=== PATIENT | male | born 1935 | race Caucasian/White ===

== ENCOUNTER 2019-02-10 13:12 | Inpatient (IN) ==
[2019-02-10] MEDS ORDERED: Naloxone 0.4 MG/ML INJ IVP PRN (16:25)
[2019-02-10] MEDS ORDERED: Ondansetron 4 MG/2 ML VIAL IVP PRN (16:26)
--- NOTE | 2019-02-10 17:00 | Internal Med History&Physical ---
Date of Encounter: 02/10/19 Time of Encounter: 16:00 Internal Medicine - H&P: HPI Chief complaint: Left hip fracture History of present illness: Mr. Zacarias is a 83 year old male with pmh of atrial fibrillation, CAD, diabetes, dyslipidemia presenting with complaints of being unable to walk today s/p fall. Patient reports having falling down on wednesday and has been having pain and difficulty ambulating since then. he subsequenty fell agin 2 more times, the most recent being at 3am today. He has been in severe pain and been unable to ambulate since then and that's why he came to the ER. He denies any other acute complaints such as chest pain, nausea or vomiting. In the ER at [facility] he had, a hip xray done showing a left hip fracture and he was transferred here for an orthopedic surgery assessment. He is being admitted for further management Past Med Surg Social Fam HX - Past Medical History Medical history: atrial fibrillation, hyperlipidemia, hypertension Additional medical history: A-fib, HTN, HLD, cardiac stents X2 - Past Surgical History Surgical History: cholecystectomy - Social History Smoking Status: Current some day smoker Packs per day: 3-4 cigs/day Smokeless Tobacco Status: No Alcohol use: rarely Drug use: none - Family History Father Hx Family Endocrine Disorder: Yes (Diabetes) Internal Medicine - H&P: Meds Clopidogrel [Plavix] 75 mg PO DAILY 02/10/19 [History] Furosemide [Lasix] 40 mg PO BID 02/10/19 [History] Glimepiride [Amaryl] 2 mg PO 0800 02/10/19 [History] Metformin HCl [Metformin HCl ER] 500 mg PO QPM 02/10/19 [History] Metoprolol Succinate 50 mg PO BID 02/10/19 [History] Rosuvastatin [Crestor] 40 mg PO DAILY 02/10/19 [History] Sulfamethoxazole/Trimeth DS [Bactrim Ds] 1 tab PO BID 02/10/19 [History] Allergy/AdvReac Type Severity Reaction Status Date / Time Iodinated Contrast Media Allergy Severe Rash Verified 02/10/19 16:28 All Systems PM: A 10-system review of systems was performed and is negative for pertinent findings except as documented above in the HPI. - Constitutional Constitutional: no chills, no fever(s), no night sweats - EENT Eyes: no change in vision, no discharge, no pain, no photophobia Ears: no ear discharge, no ear pain, no tinnitus Nose, mouth and throat: no dysphagia, no nasal discharge, no neck pain, no sore throat - Cardiovascular Cardiovascular ROS IM: no chest pain, no diaphoresis, no dyspnea, no lightheadedness, no palpitations, no syncope - Respiratory Respiratory: no cough, no dyspnea, no wheezing, no excessive phlegm production - Gastrointestinal Gastrointestinal: no abdominal pain, no diarrhea, no hematemesis, no hematochezia, no melena, no nausea, no vomiting - Musculoskeletal Musculoskeletal ROS IM: limited range of motion, no numbness, no tingling Additional comments: hip pain - Integumentary Integumentary IM: no rash, no unusual bruising - Neurological Neurological ROS: no confusion, no convulsions, no focal weakness, no numbness, no tingling, no tremor(s) - Hematologic/Lymphatic Hematologic/Lymphatic: no easy bruising - Constitutional Vitals: Temp Pulse Resp BP Pulse Ox 97.4 F L 71 16 116/73 96 02/10/19 16:04 02/10/19 16:04 02/10/19 16:04 02/10/19 16:04 02/10/19 16:04 Exam: Mild distress fr pain Left lower extremity appears shortened and externally rotated - Head Head exam: Present: atraumatic, normocephalic - Eye Eye exam: Present: PERRL, conjuntiva pink, sclera anicteric Pupils: Present: PERRL - Neck Neck exam general surgery: Present: supple, trachea midline. Absent: lymphadenopathy - Respiratory Respiratory exam: Present: CTAB. Absent: accessory muscle use, rales, rhonchi, wheezes - Cardiovascular Cardiovascular exam: Present: RRR, +S1, +S2. Absent: diastolic murmur, gallop, rubs, systolic murmur - GI/Abdominal GI/Abdominal exam: Present: normal bowel sounds, soft, no peritoneal signs. Absent: distended, tenderness - Extremities Exam Extremities exam: Present: warm, radial pulses palpable and symmetrical. Absent: calf tenderness, cyanotic, pedal edema - Neurological Exam Neurological exam: Present: CN II-XII intact, oriented X3, no focal deficits. Absent: pronater drift, facial droop, speech deficit - Skin Skin exam: Present: dry, intact - Assessment and Plan (1) Hip fracture Current Visit: Yes Status: Acute Assessment and plan: Pt comes in with hip pain s/p fall. Xray shows acute hip fracture Ortho cosulted and plan for surgery in am Qualifiers: Qualified Code(s): S72.009A - Fracture of unspecified part of neck of unspecified femur, initial encounter for closed fracture (2) Diabetes Current Visit: Yes Status: Acute Assessment and plan: On sliding scale insulin. Monitor fingersticks Qualifiers: Qualified Code(s): E11.9 - Type 2 diabetes mellitus without complications (3) Atrial fibrillation Current Visit: Yes Status: Acute Assessment and plan: Continue beta blockers. Does not appear to be on anticoagulation Rate controlled Qualifiers: Qualified Code(s): I48.91 - Unspecified atrial fibrillation (4) CAD (coronary artery disease) Current Visit: Yes Status: Acute Assessment and plan: Continue plavix and statin Qualifiers: Qualified Code(s): I25.10 - Atherosclerotic heart disease of [place] coronary artery without angina pectoris (5) Dyslipidemia Current Visit: Yes Status: Acute Assessment and plan: Continue statin (6) Chronic kidney disease Current Visit: Yes Status: Acute Assessment and plan: CKD stage 3. Monitor creatinine. No acute worsening Qualifiers: Chronic kidney disease stage: stage 3 (moderate) Qualified Code(s): N18.3 - Chronic kidney disease, stage 3 (moderate) (7) DVT prophylaxis Current Visit: Yes Status: Acute Assessment and plan: heparin sc - Time Spent With Patient Total time spent is greater than 50% in coordination of care (as documented) at patient's floor/unit and/or counseling patient:
[2019-02-10] MEDS ORDERED: Dextrose Gel 15 GM/37.5 ML TUBE PO PRN ×2 (17:02)
[2019-02-10] MEDS ORDERED: D5% in Water 1,000 ML IVC PRN (17:02)
[2019-02-10] MEDS ORDERED: *HR* Dextrose 50 % in Water (Syg) 50 ML SYRINGE IVP PRN (17:02)
[2019-02-10] MEDS: *HR* Heparin 5,000 UNIT/ML VIAL SQ SCH (18:07)
[2019-02-10] MEDS: Metoprolol XL (24 HR) Succ 50 MG TAB.ER.24H PO SCH (21:09)
[2019-02-11] MEDS: *HR* Heparin 5,000 UNIT/ML VIAL SQ SCH ×2 (06:04→17:21)
--- NOTE | 2019-02-11 07:01 | Anesthesia Evaluation PreOp ---
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: Denies Any Significant HX Other Medical History: Denies Any Significant HX, Diabetes Type II Anesthesia History: No Prior Anesthetic Complications, Past Anesthesia (ramón) Alcohol Use: rarely Drug use: none Medications and Allergies Albuterol Sulfate [Proair Hfa] 1 puff IH Q6H PRN 02/10/19 [History] Aspirin [Lo-Dose Aspirin EC] 1 tab PO DAILY 02/10/19 [History] Clopidogrel [Plavix] 75 mg PO DAILY 02/10/19 [History] Furosemide [Lasix] 40 mg PO BID 02/10/19 [History] Glimepiride [Amaryl] 2 mg PO 0800 02/10/19 [History] Metformin HCl [Metformin HCl ER] 500 mg PO QPM 02/10/19 [History] Metoprolol Succinate 50 mg PO BID 02/10/19 [History] Ranolazine [Ranexa] 500 mg PO BID 02/10/19 [History] Rosuvastatin [Crestor] 40 mg PO DAILY 02/10/19 [History] Sulfamethoxazole/Trimeth DS [Bactrim Ds] 1 tab PO BID 02/10/19 [History] Allergy/AdvReac Type Severity Reaction Status Date / Time Iodinated Contrast Media Allergy Severe Rash Verified 02/10/19 16:28 - Meds/Allergy Pre-op Review Medications Reviewed: Yes Allergies Reviewed: Yes Beta Blockers on Current Med List: Yes Anesthesia Results - Labs Laboratory Tests 01/30/19 02/07/19 12:42 09:21 Sodium 136 Potassium 4.0 Chloride 101 Carbon Dioxide 24 BUN 30 H Creatinine 2.13 H Hemoglobin A1c 7.1 H Hb 12.4 Anesthesia Exam Vital Signs/O2 Sat/Glucose, Most Recent Temp Pulse Resp BP Pulse Ox 98.0 F 74 18 110/67 96 02/11/19 06:25 02/11/19 06:25 02/11/19 06:25 02/11/19 06:25 02/11/19 06:25 Blood Glucose* 149 - HEENT Pupil (Motor): Pupils equal, EOMI Mallampati: II Oral Opening: Greater than 3 - FINAL ARMATURE TESTER LOC: Oriented FINAL ARMATURE TESTER Motor: Normal RUE, Normal LUE, Normal RLE, Normal LLE, Normal Face FINAL ARMATURE TESTER Sensory: Normal: RUE, LUE, RLE, LLE, Face - Cardiac Rhythm: Regular Murmur: None JVD: No - Pulmonary Breath Sounds: bilateral Clear Respiratory Effort: Symmetrical Anesthesia Assess/Plan ASA Score: 4 Level of consciousness: Cooperative, Oriented, Asleep with no response Reason for No Neuroaxial/Regional Block: Medication contraindications Monitoring Plan: Standard Monitors Recovery Plan: PACU
[2019-02-11] MEDS ORDERED: *HR* Rocuronium Bromide 50 MG/5 ML VIAL ONE (07:06)
[2019-02-11] MEDS ORDERED: Lidocaine -MPF 2% 2 ML VIAL ONE (07:06)
[2019-02-11] MEDS ORDERED: Lidocaine HCL 4 ML Topical Solution (Laryng-O-Jet Kit Sterile Pak) TP ONE (07:06)
[2019-02-11] MEDS ORDERED: Dexamethasone 4 MG/ML VIAL ONE (07:06)
[2019-02-11] MEDS ORDERED: Ondansetron 4 MG/2 ML VIAL ONE (07:06)
[2019-02-11] MEDS ORDERED: *HR* Succinylcholine 200 MG/10 ML VIAL IVP ONE (07:06)
[2019-02-11] MEDS ORDERED: *HR* Propofol 200 MG/20 ML VIAL IVP ONE (07:07)
[2019-02-11] MEDS ORDERED: *HR* FentaNYL (PF) 100 MCG/2 ML VIAL ONE (07:07)
[2019-02-11] MEDS ORDERED: Dexamethasone 4 MG/ML VIAL IVP ONE (07:29)
[2019-02-11] MEDS ORDERED: Acetaminophen IV 1,000 MG/100 ML INFUS..BTL IVPB ONE (07:29)
[2019-02-11] MEDS ORDERED: Ondansetron 4 MG/2 ML VIAL IVP ONE (07:29)
[2019-02-11] MEDS ORDERED: *HR* Meperidine 25 MG/ML SYRINGE IVP PRN (07:29)
[2019-02-11] MEDS ORDERED: *HR* Promethazine 25 MG/ML VIAL IVP PRN (07:29)
[2019-02-11] MEDS ORDERED: Ringers Solution, Lactated 1,000 ML IVC SCH (07:30)
[2019-02-11] MEDS: Insulin LISPRO 300 UNITS/3 ML VIAL SQ SCH ×3 (07:43→19:43)
--- NOTE | 2019-02-11 07:45 | Orthopedic Consult Note ---
Date of Encounter: 02/11/19 Time of Encounter: 07:42 Assessment and Plan (1) Hip fracture Current Visit: Yes Status: Acute After discussing the pros and cons of treatment options including non-operative and operative intervention, to allow for early ambulation and pain control the patient has elected to proceed with left hip cephalomedullary nail at this time. The risks and benefits of the procedure were fully explained in detail, including but not limited to the risk of infection, neurovascular injury, continued pain or stiffness, failure of surgery, reinjury, or need for additional surgery, DVT, PE, general risks of anesthesia and loss of limb or life. No guarantees were given or implied and all questions were answered. The patient understands all the risks and does wish to proceed with written consent. Surgery will be scheduled in a timely manner. Qualifiers: Encounter type: initial encounter Fracture type: closed Laterality: left Qualified Code(s): S72.002A - Fracture of unspecified part of neck of left femur, initial encounter for closed fracture History of Present Illness HPI: Mr. Zacarias is a 83 year old male with pmh of atrial fibrillation, CAD, diabetes, dyslipidemia presenting from an outside hospital after a fall yesterday. He sustained a left hip intertrochanteric fracture and was transferred to our facility for definitive management. He has had multiple falls recently although he and his family deny any chest pain, shortness of breath, dizziness or prodromal symptoms prior to the fall. He also does not use a walker or cane although it has been recommended to him in the past. Pain is over the left hip with inability to ambulate denies pain in other areas. Past Med Surg Social Fam HX - Past Medical History Medical history: atrial fibrillation, hyperlipidemia, hypertension Additional medical history: A-fib, HTN, HLD, cardiac stents X2 - Past Surgical History Surgical History: cholecystectomy - Social History Smoking Status: Current some day smoker Packs per day: 3-4 cigs/day Smokeless Tobacco Status: No Alcohol use: rarely Drug use: none - Family History Father Hx Family Endocrine Disorder: Yes (Diabetes) Medications and Allergies Albuterol Sulfate [Proair Hfa] 1 puff IH Q6H PRN 02/10/19 [History] Aspirin [Lo-Dose Aspirin EC] 1 tab PO DAILY 02/10/19 [History] Clopidogrel [Plavix] 75 mg PO DAILY 02/10/19 [History] Furosemide [Lasix] 40 mg PO BID 02/10/19 [History] Glimepiride [Amaryl] 2 mg PO 0800 02/10/19 [History] Metformin HCl [Metformin HCl ER] 500 mg PO QPM 02/10/19 [History] Metoprolol Succinate 50 mg PO BID 02/10/19 [History] Ranolazine [Ranexa] 500 mg PO BID 02/10/19 [History] Rosuvastatin [Crestor] 40 mg PO DAILY 02/10/19 [History] Sulfamethoxazole/Trimeth DS [Bactrim Ds] 1 tab PO BID 02/10/19 [History] Allergy/AdvReac Type Severity Reaction Status Date / Time Iodinated Contrast Media Allergy Severe Rash Verified 02/10/19 16:28 All Systems Reviewed: The remainder of the systems were reviewed and are negative except as noted in the history of present illness. Physical Exam - Constitutional Vitals: Temp Pulse Resp BP Pulse Ox 98.0 F 74 18 110/67 96 02/11/19 06:25 02/11/19 06:25 02/11/19 06:25 02/11/19 06:25 02/11/19 06:25 Exam: Consult Exam: Constitutional -Vitals reviewed -The patient is well developed and well nourished. -Mood is pleasant. -The patient is well groomed. Psychiatric -The patient is fully alert and oriented x 3. Respiratory: -Respiratory effort normal Abdomen: -Soft abdomen -Non tender -Non distended: Left upper extremity: -No deformities. The overlying skin is intact. No obvious signs of acute trauma. -No tenderness to palpation throughout. -No significant pain with passive motion of the shoulder, elbow, wrist, and fingers within the limits of the bed. -Able to make an "OK" sign, cross the index and long fingers, and extend the thumb. -Sensation grossly intact to light touch throughout the median, radial, and ulnar distributions. -Radial pulse is present; Fingers have good capillary refill. Right upper extremity: -No deformities. The overlying skin is intact. No obvious signs of acute trauma. -No tenderness to palpation throughout. -No significant pain with passive motion of the shoulder, elbow, wrist, and fingers within the limits of the bed. -Able to make an "OK" sign, cross the index and long fingers, and extend the thumb. -Sensation grossly intact to light touch throughout the median, radial, and ulnar distributions. -Radial pulse is present; Fingers have good capillary refill. Left lower extremity: -Short/ER -Pain with log roll/IR -Able to dorsiflex and plantarflex the ankle and toes. -Sensation is grossly intact to light touch throughout the sural, saphenous, superficial peroneal, and deep peroneal distributions. -Toes have good capillary refill. Right lower extremity: -No deformities. The overlying skin is intact. No obvious signs of acute trauma. -No tenderness to palpation throughout. -No pain with passive motion of the hip, knee, ankle, and toes within the limits of the bed. -No pain with axial loading of the thigh. -Able to dorsiflex and plantarflex the ankle and toes. -Sensation is grossly intact to light touch throughout the sural, saphenous, superficial peroneal, and deep peroneal distributions. -Toes have good capillary refill. Results - Labs Labs: Abnormal lab results POC Glucose 144 mg/dL (70-99) H 02/10/19 20:54 All other labs normal. - Diagnostic results Hip x-ray: report reviewed, image reviewed (Left hip intertrochanteric fracture) Consult Discharge Plan - Plan Referrals: NONE,PCP [Primary Care Provider] -
--- NOTE | 2019-02-11 08:22 | Internal Med Progress Note ---
Hospitalist Progress Note - Encounter Date of Encounter: 02/11/19 Time of Encounter: 10:00 - Subjective Interval History: No acute events overnight - Exam Vitals: Temp Pulse Resp BP Pulse Ox 99.6 F 78 16 107/52 97 02/11/19 08:08 02/11/19 08:08 02/11/19 08:08 02/11/19 08:08 02/11/19 08:08 Exam: General appearance: Present: A&O X 3, no acute distress Head exam: Present: normocephalic Respiratory exam: Present: CTAB. Absent: accessory muscle use, rales, rhonchi, wheezes Cardiovascular exam: Present: RRR, +S1, +S2. Absent: diastolic murmur, gallop, rubs, systolic murmur GI/Abdominal exam: Soft, NT, ND, +BS Extremities exam: Left lower extremity dressing in place Neurological exam: Present: alert, oriented X3, no focal deficits. Absent: altered - Assessment and Plan (1) Hip fracture Current Visit: Yes Status: Acute Assessment and Plan: Pt comes in with hip pain s/p fall. Xray shows acute hip fracture s/p Left hip cephalomedullary nail this am. Tolerated procedure well with no acute complications (2) Diabetes Current Visit: Yes Status: Acute Assessment and Plan: On sliding scale insulin. Monitor fingersticks (3) Atrial fibrillation Current Visit: Yes Status: Acute Assessment and Plan: Continue beta blockers. Does not appear to be on anticoagulation Rate controlled (4) CAD (coronary artery disease) Current Visit: Yes Status: Acute Assessment and Plan: Continue plavix and statin (5) Dyslipidemia Current Visit: Yes Status: Acute Assessment and Plan: Continue statin (6) Chronic kidney disease Current Visit: Yes Status: Acute Assessment and Plan: CKD stage 3. Monitor creatinine. No acute worsening (7) DVT prophylaxis Current Visit: Yes Status: Acute Assessment and Plan: heparin sc - Time Spent with Patient Total time spent is greater than 50% in coordination of care (as documented) at patient's floor/unit and/or counseling patient: Internal Medicine: Result - Labs CBC & Chem 7: 02/11/19 13:34 02/11/19 13:34 - Impressions Impressions Chest X-Ray 02/10/19 18:40 IMPRESSION: No acute process. D/ / Reyes Garzon MD / Reyes Garzon MD Interpreting Provider: Reyes Garzon MD Consult Discharge Plan - Plan Referrals: NONE,PCP [Primary Care Provider] - (1) Hip fracture Qualifiers: Encounter type: initial encounter Fracture type: closed Laterality: left Qualified Code(s): S72.002A - Fracture of unspecified part of neck of left femur, initial encounter for closed fracture (2) Diabetes Qualifiers: Qualified Code(s): E11.9 - Type 2 diabetes mellitus without complications (3) Atrial fibrillation Qualifiers: Qualified Code(s): I48.91 - Unspecified atrial fibrillation (4) CAD (coronary artery disease) Qualifiers: Qualified Code(s): I25.10 - Atherosclerotic heart disease of [place] coronary artery without angina pectoris (6) Chronic kidney disease Qualifiers: Chronic kidney disease stage: stage 3 (moderate) Qualified Code(s): N18.3 - Chronic kidney disease, stage 3 (moderate)
[2019-02-11] MEDS ORDERED: Ranolazine 500 MG TAB.ER.12H PO SCH (09:00)
[2019-02-11] MEDS ORDERED: Aspirin Enteric Coated 81 MG Tablet PO SCH (09:00)
[2019-02-11] MEDS ORDERED: *HR* PHENYLEPHRINE 1,000 MCG/10 ML SYRINGE IVP ONE (10:19)
[2019-02-11] MEDS ORDERED: ceFAZolin 2,000 MG in Water for inj. (sterile) 20 ML IVP ONE (10:37)
--- NOTE | 2019-02-11 11:22 | Orthopedic Operative Note ---
Date of procedure: 02/11/19 Procedure: Procedure: Left hip cephalomedullary nail Preoperative diagnosis: Left hip intertrochanteric fracture Postoperative diagnosis: Same Surgeon: Chemo Garcia MD Anesthesia: General EBL: 100 cc Complications: None Components used: Synthes TFNA 11 x 170 mm/130 degree nail, 110 mm helical blade, 5.0 x 38 mm locking screw Indications: This is an 81 yo male who sustained a mechanical fall onto his left side, causing him left hip pain and deformity. he was brought to the emergency department and imaging confirmed a left hip intertrochanteric fracture, he was then admitted to our facility for definitive management. After discussing the procedure at length, the patient elected for operative management with a cephalomedullary nail of the left hip. The risks and benefits the procedure were fully explained. Those risks included but are not limited to, infection, neurovascular injury, continued pain, arthritis, stiffness, further injury, need for further surgery, DVT, PE, loss of limb, and loss of life. The patient understood all these risks and wished to proceed. Informed consent was obtained. No guarantees were stated or implied. Operative report: The patient was assessed and cleared by the medical group prior to surgery. Patient was brought to the holding area. Left lower extremity was marked, the patient was taken to the operating room, general anesthetic was administered and he was transferred to the hospital bed. The patient's head, neck and airway were protected by anesthesia throughout the case. The patient was then transferred to the fracture table and placed in supine position with a well padded perineal post. All bony prominences were well-padded. Left leg was attached to traction device and the fracture bed. The right leg was then placed in a well leg rees and positioned out of the way of fluoroscopy. We then utilized fracture table to reduce the fracture and obtained fluoroscopic images in AP and lateral planes confirming alignment. The left lower extremity was then prepped and draped in the normal sterile orthopedic fashion. Preoperative antibiotics were given prior to incision. A surgical time out protocol was then performed. We then made an incision just proximal to the greater trochanter. We dissected down through the IT band sharply. We were then able to palpate the greater trochanter and we placed a guidepin in the appropriate starting position on the greater trochanter. We advanced the guidepin into the proximal femur and then confirmed the position in both AP and lateral planes. After confirming acceptable pin placement at the tip of the greater trochanter, we advanced the pin to the level of the lesser trochanter. We then utilized an entry reamer over the pin to open up the canal. We then placed a size 10 mm 130 degree Synthes TFNA short nail over the guide pin. We manually advanced the nail to the appropriate depth taking care to avoid any further injury to the bone. When the nail was at the appropriate depth we used the outrigger to place a guidepin for the compression blade into the femoral head. We confirmed the location of the pin on both AP and lateral x-rays. We then overdrilled the pin and placed the 95 mm blade. We then locked the nail proximally and utilized the outrigger for compression across the fracture site. After confirming acceptable alignment of the fracture, we then used the outrigger to place a distal locking screw from lateral to medial. At this point we obtained final fluoroscopic images of the left hip and femur in both AP and lateral planes. We then thoroughly irrigated the wounds and closed the IT band with 0 Vicryl. Subcutaneous tissue was closed with 2-0 strata fix, skin was closed with 3-0 strata fix and then zip line. Sterile dressing was placed, the patient was woken by anesthesia and taken transferred to PACU in stable condition. Patient tolerated procedure well with no issues. Postop plan: Patient will be transferred back to the floor and will be weight- bearing as tolerated of left lower extremity with physical therapy postoperatively. Patient is on DVT prophylaxis per the hospitalist group. Was there an technical assistant present: No Estimated blood loss (cc): 100
[2019-02-11] MEDS ORDERED: *HR* Vasopressin 20 UNIT/ML VIAL ONE (11:37)
[2019-02-11] MEDS: *HR* HYDROmorphone (PF) 1 MG/ML SYRINGE IVP PRN ×2 (11:49→11:57)
--- NOTE | 2019-02-11 11:54 | Anesthesia Evaluation Post Op ---
Date of Encounter: 02/11/19 Time of Encounter: 12:10 - Vital Signs Vital Signs: Vital Signs/O2 Sat/Glucose, Most Recent Temp Pulse Resp BP Pulse Ox 98.4 F 87 12 135/52 96 02/11/19 11:26 02/11/19 11:36 02/11/19 11:36 02/11/19 11:36 02/11/19 11:36 Blood Glucose* 120 - Lungs Lungs: Clear Ascult./Percussion - Airway Airway: Non-obstructed - Cardiovascular Baseline Rhythm - Mental Status Mental Status: Alert & Oriented, Answers Appropriately - Pain Pain Scale: 4 - Nausea Vomiting Nausea Vomiting: Not Present - Hydration Hydration: Ice chips - Discharge PostOp Status: Transfer Patient to floor
[2019-02-11] MEDS ORDERED: D5% in Water 1,000 ML IVC PRN (12:33)
[2019-02-11] MEDS ORDERED: Naloxone 0.4 MG/ML INJ IVP PRN (12:33)
[2019-02-11] MEDS ORDERED: *HR* Dextrose 50 % in Water (Syg) 50 ML SYRINGE IVP PRN (12:33)
[2019-02-11] MEDS ORDERED: Dextrose Gel 15 GM/37.5 ML TUBE PO PRN ×2 (12:33)
[2019-02-11] MEDS ORDERED: Ondansetron 4 MG/2 ML VIAL IVP PRN (12:33)
[2019-02-11 13:56] LABS: Basophils % 0.1 %; Eosinophils % 0.1 %; Hematocrit 37.9 % (37.5-50.1); Hemoglobin 11.6 g/dL (12.9-16.9); Immature Granulocytes % 0.5 % (0-4); Lymphocytes # 0.7 K/mcL (0.6-4.6); Lymphocytes % 9.3 %; Mean Corpuscular HGB Conc 30.6 g/dL (31.6-35.5); Mean Corpuscular Hemoglobin 28.1 pg (28.0-33.3); Mean Corpuscular Volume 91.8 fL (83.0-100.0); Mean Platelet Volume 11.9 fL (9.4-12.4); Monocytes # 0.3 K/mcL (0.0-1.3); Monocytes % 4.2 %; Neutrophils # 6.7 K/mcL (1.6-8.9); Platelet Count 146 K/mcL (140-400); Red Blood Count 4.13 M/mcL (4.19-5.50); Red Cell Distribution Width 15.3 % (11.5-14.5); Segmented Neutrophils % 85.8 %; White Blood Count 7.9 K/mcL (4.3-11.1)
[2019-02-11 14:04] LABS: Calcium 8.7 mg/dL (8.6-10.3); Magnesium 2.3 mg/dL (1.6-2.6); Phosphorous 3.9 mg/dL (2.7-4.5); Potassium 4.7 mEq/L (3.5-5.1)
[2019-02-11] MEDS: Metoprolol XL (24 HR) Succ 50 MG TAB.ER.24H PO SCH ×2 (19:42→20:11)
[2019-02-11] MEDS: Ranolazine 500 MG TAB.ER.12H PO SCH (20:11)
[2019-02-12 03:57] LABS: Hematocrit 32.7 % (37.5-50.1); Hemoglobin 10.2 g/dL (12.9-16.9); Mean Corpuscular HGB Conc 31.2 g/dL (31.6-35.5); Mean Corpuscular Hemoglobin 27.9 pg (28.0-33.3); Mean Corpuscular Volume 89.3 fL (83.0-100.0); Mean Platelet Volume 12.5 fL (9.4-12.4); Platelet Count 140 K/mcL (140-400); Red Blood Count 3.66 M/mcL (4.19-5.50); White Blood Count 7.1 K/mcL (4.3-11.1)
[2019-02-12 04:44] LABS: Calcium 8.4 mg/dL (8.6-10.3); Potassium 4.9 mEq/L (3.5-5.1)
[2019-02-12] MEDS: *HR* Heparin 5,000 UNIT/ML VIAL SQ SCH ×2 (05:25→17:35)
[2019-02-12] MEDS: Insulin LISPRO 300 UNITS/3 ML VIAL SQ SCH ×3 (07:26→17:34)
[2019-02-12] MEDS: Ranolazine 500 MG TAB.ER.12H PO SCH ×2 (07:41→22:53)
[2019-02-12] MEDS: Aspirin Enteric Coated 81 MG Tablet PO SCH (07:41)
[2019-02-12] MEDS: Metoprolol XL (24 HR) Succ 50 MG TAB.ER.24H PO SCH ×2 (07:42→22:52)
--- NOTE | 2019-02-12 08:24 | Internal Med Progress Note ---
Hospitalist Progress Note - Encounter Date of Encounter: 02/12/19 Time of Encounter: 09:00 - Subjective Interval History: No acute events overnight - Exam Vitals: Temp Pulse Resp BP Pulse Ox 98.4 F 70 18 111/69 97 02/12/19 06:36 02/12/19 06:36 02/12/19 06:36 02/12/19 06:36 02/12/19 06:36 Exam: General appearance: Present: A&O X 3, no acute distress Head exam: Present: normocephalic Respiratory exam: Present: CTAB. Absent: accessory muscle use, rales, rhonchi, wheezes Cardiovascular exam: Present: RRR, +S1, +S2. Absent: diastolic murmur, gallop, rubs, systolic murmur GI/Abdominal exam: Soft, NT, ND, +BS Extremities exam: Left lower extremity dressing in place Neurological exam: Present: alert, oriented X3, no focal deficits. Absent: altered - Assessment and Plan (1) Hip fracture Current Visit: Yes Status: Acute Assessment and Plan: Pt comes in with hip pain s/p fall. Xray shows acute hip fracture s/p Left hip cephalomedullary nail on 02/11. Tolerated procedure well with no acute complications PT recs pending for discharge planning (2) Diabetes Current Visit: Yes Status: Acute Assessment and Plan: On sliding scale insulin. Monitor fingersticks (3) Atrial fibrillation Current Visit: Yes Status: Acute Assessment and Plan: Continue beta blockers. Does not appear to be on anticoagulation Rate controlled (4) CAD (coronary artery disease) Current Visit: Yes Status: Acute Assessment and Plan: Continue plavix and statin (5) Dyslipidemia Current Visit: Yes Status: Acute Assessment and Plan: Continue statin (6) Chronic kidney disease Current Visit: Yes Status: Acute Assessment and Plan: CKD stage 3. Monitor creatinine. No acute worsening (7) DVT prophylaxis Current Visit: Yes Status: Acute Assessment and Plan: heparin sc - Time Spent with Patient Total time spent is greater than 50% in coordination of care (as documented) at patient's floor/unit and/or counseling patient: Internal Medicine: Result - Labs CBC & Chem 7: 02/12/19 03:01 02/12/19 03:01 Labs: Short CBC 02/11/19 02/12/19 Range/Units 13:34 03:01 WBC 7.9 7.1 (4.3-11.1) K/mcL Hgb 11.6 L 10.2 L (12.9-16.9) g/dL Hct 37.9 32.7 L (37.5-50.1) % Plt Count 146 140 (140-400) K/mcL Neutrophils # 6.7 (1.6-8.9) K/mcL BMP 02/11/19 02/12/19 13:34 03:01 Sodium 132 L 141 D Potassium 4.7 4.9 Chloride 102 95 L Carbon Dioxide 23 23 BUN 32 H 30 H Creatinine 1.87 H 1.53 H Glucose 160 H 168 H Calcium 8.7 8.4 L - Impressions Impressions Fluoroscopy 02/11/19 11:19 IMPRESSION: Spot images were obtained for surgical control. D/ / 02/11/2019 12:13:35 Flaco Leslie MD / Hilda Lozoya Interpreting Provider: Flaco Leslie MD Consult Discharge Plan - Plan Referrals: NONE,PCP [Primary Care Provider] - (1) Hip fracture Qualifiers: Encounter type: initial encounter Fracture type: closed Laterality: left Qualified Code(s): S72.002A - Fracture of unspecified part of neck of left femur, initial encounter for closed fracture (2) Diabetes Qualifiers: Qualified Code(s): E11.9 - Type 2 diabetes mellitus without complications (3) Atrial fibrillation Qualifiers: Qualified Code(s): I48.91 - Unspecified atrial fibrillation (4) CAD (coronary artery disease) Qualifiers: Qualified Code(s): I25.10 - Atherosclerotic heart disease of [place] coronary artery without angina pectoris (6) Chronic kidney disease Qualifiers: Chronic kidney disease stage: stage 3 (moderate) Qualified Code(s): N18.3 - Chronic kidney disease, stage 3 (moderate)
--- NOTE | 2019-02-12 11:15 | Orthopedics Progress Note ---
Date of Encounter: 02/12/19 Time of Encounter: 11:14 - Assessment and Plan (1) Hip fracture Current Visit: Yes Status: Acute Qualifiers: Encounter type: initial encounter Fracture type: closed Laterality: left Qualified Code(s): S72.002A - Fracture of unspecified part of neck of left femur, initial encounter for closed fracture Subjective Interval history: No overnight issues. Pain is controlled. No nausea/vomiting. No CP/SOB. Vitals reviewed Extremity exam: Dressing clean, dry and intact No erythema or drainage Distally neurovascularly intact to motor/sensory exam No calf pain or tenderness s/p L hip nail Continue current management PO pain and nausea control Up with PT Discharge planning Objective Vital signs: Vital Signs Temp Pulse Resp BP Pulse Ox 02/12/19 06:36 98.4 F 70 18 111/69 97 02/12/19 05:41 97.9 F 84 20 103/63 97 02/11/19 23:34 97.7 F 77 20 104/53 95 02/11/19 20:26 98 02/11/19 18:18 98.1 F 70 20 100/61 93 02/11/19 15:30 75 16 115/55 93 02/11/19 14:30 79 16 111/46 93 02/11/19 13:30 82 16 108/58 97 02/11/19 13:00 82 16 110/62 96 02/11/19 12:30 98.2 F 79 16 108/49 93 02/11/19 12:20 98.3 F 78 12 120/51 95 02/11/19 12:16 72 12 122/59 98 02/11/19 12:06 98.4 F 75 10 108/52 93 02/11/19 11:56 71 10 113/45 94 02/11/19 11:46 82 12 115/57 96 02/11/19 11:36 87 12 135/52 96 02/11/19 11:26 98.4 F 73 16 127/59 96 Intake and Output 02/11/19 02/12/19 02/12/19 23:59 07:59 15:59 Intake Total 340 / 340 1220 / 1220 Output Total 475 / 625 550 / 850 300 / 850 Balance -135 / -285 670 / 370 -300 / 370 Intake: IV Fluids 100 / 100 1220 / 1220 Lactated Ringers 1,000 ML @ 25 1000 / 1000 mls/hr IVC .Q24H [facility] Rx#: [id number] Ancef 2,000 MG In Water for inj 20 / 20 . (sterile) 20 ML @ 200 mls/hr IVP PREOP ONE Rx#:[id number] Ofirmev 1,000 mg/100 ml 1,000 100 / 100 mg In 100 ml @ 400 mls/hr IVPB ONCE ONE Rx#:[id number] Ancef 2,000 MG In 0.9 % Sodium 100 / 100 100 / 100 Chloride 100 ML @ 200 mls/hr IVPB Q8H [facility] Rx#:[id number] Oral 240 / 240 Output: Urine 475 / 525 550 / 850 300 / 850 Other: Meal Dinner Percent of Meal Consumed 80% Blood Glucose* 149 139 - Labs CBC & BMP: 02/12/19 03:01 02/12/19 03:01 Labs: Abnormal lab results RBC 3.66 M/mcL (4.19-5.50) L 02/12/19 03:01 Hgb 10.2 g/dL (12.9-16.9) L 02/12/19 03:01 Hct 32.7 % (37.5-50.1) L 02/12/19 03:01 MCH 27.9 pg (28.0-33.3) L 02/12/19 03:01 MCHC 31.2 g/dL (31.6-35.5) L 02/12/19 03:01 RDW 15.0 % (11.5-14.5) H 02/12/19 03:01 MPV 12.5 fL (9.4-12.4) H 02/12/19 03:01 Sodium 132 mEq/L (136-145) L 02/11/19 13:34 Chloride 95 mEq/L (98-107) L 02/12/19 03:01 BUN 30 mg/dL (8-23) H 02/12/19 03:01 Creatinine 1.53 mg/dL (0.70-1.30) H 02/12/19 03:01 Est GFR ( Amer) 53 (> 60) L 02/12/19 03:01 Est GFR (Non-Af Amer) 43 (> 60) L 02/12/19 03:01 Glucose 168 mg/dL (70-105) H 02/12/19 03:01 POC Glucose 149 mg/dL (70-99) H 02/11/19 20:39 Calculated Osmolality 302 (280-300) H 02/12/19 03:01 Calcium 8.4 mg/dL (8.6-10.3) L 02/12/19 03:01 Consult Discharge Plan - Plan Referrals: NONE,PCP [Primary Care Provider] -
[2019-02-12] MEDS ORDERED: Colchicine 0.6 MG TABLET PO PRN (12:08)
[2019-02-12] MEDS: Furosemide 40 MG TABLET PO SCH (22:51)
[2019-02-12] MEDS ORDERED: Acetaminophen IV 1,000 MG/100 ML INFUS..BTL IVPB ONE (23:08)
[2019-02-13] MEDS: *HR* Heparin 5,000 UNIT/ML VIAL SQ SCH ×2 (06:07→18:46)
[2019-02-13 06:39] LABS: Hematocrit 29.4 % (37.5-50.1); Hemoglobin 9.4 g/dL (12.9-16.9); Immature Platelets 11.8 % (1.1-6.1); Mean Corpuscular Hemoglobin 28.1 pg (28.0-33.3); Mean Platelet Volume 12.6 fL (9.4-12.4); Red Blood Count 3.34 M/mcL (4.19-5.50); Red Cell Distribution Width 15.2 % (11.5-14.5); White Blood Count 7.2 K/mcL (4.3-11.1)
[2019-02-13 06:49] LABS: Calcium 8.4 mg/dL (8.6-10.3); Potassium 4.4 mEq/L (3.5-5.1)
[2019-02-13] MEDS: Insulin LISPRO 300 UNITS/3 ML VIAL SQ SCH ×3 (08:05→16:52)
--- NOTE | 2019-02-13 08:12 | Internal Med Progress Note ---
Hospitalist Progress Note - Encounter Date of Encounter: 02/13/19 Time of Encounter: 08:00 - Subjective Interval History: No acute events overnight - Exam Vitals: Temp Pulse Resp BP Pulse Ox 97.9 F 76 16 127/76 95 02/13/19 07:56 02/13/19 07:56 02/13/19 07:56 02/13/19 07:56 02/13/19 07:56 Exam: General appearance: Present: A&O X 3, no acute distress Head exam: Present: normocephalic Respiratory exam: Present: CTAB. Absent: accessory muscle use, rales, rhonchi, wheezes Cardiovascular exam: Present: RRR, +S1, +S2. Absent: diastolic murmur, gallop, rubs, systolic murmur GI/Abdominal exam: Soft, NT, ND, +BS Extremities exam: Left lower extremity dressing in place Neurological exam: Present: alert, oriented X3, no focal deficits. Absent: altered - Assessment and Plan (1) Hip fracture Current Visit: Yes Status: Acute Assessment and Plan: Pt comes in with hip pain s/p fall. Xray shows acute hip fracture s/p Left hip cephalomedullary nail on 02/11. Tolerated procedure well with no acute complications PT recs pending for discharge planning (2) Diabetes Current Visit: Yes Status: Acute Assessment and Plan: On sliding scale insulin. Monitor fingersticks (3) Atrial fibrillation Current Visit: Yes Status: Acute Assessment and Plan: Continue beta blockers. Does not appear to be on anticoagulation Rate controlled (4) CAD (coronary artery disease) Current Visit: Yes Status: Acute Assessment and Plan: Continue plavix and statin (5) Dyslipidemia Current Visit: Yes Status: Acute Assessment and Plan: Continue statin (6) Chronic kidney disease Current Visit: Yes Status: Acute Assessment and Plan: CKD stage 3. Monitor creatinine. No acute worsening (7) DVT prophylaxis Current Visit: Yes Status: Acute Assessment and Plan: heparin sc - Time Spent with Patient Total time spent is greater than 50% in coordination of care (as documented) at patient's floor/unit and/or counseling patient: Internal Medicine: Result - Labs CBC & Chem 7: 02/13/19 05:53 02/13/19 05:53 Labs: Short CBC 02/13/19 Range/Units 05:53 WBC 7.2 (4.3-11.1) K/mcL Hgb 9.4 L (12.9-16.9) g/dL Hct 29.4 L (37.5-50.1) % Plt Count 128 L (140-400) K/mcL [facility] 02/13/19 05:53 Sodium 131 L Potassium 4.4 Chloride 103 Carbon Dioxide 27 BUN 29 H Creatinine 1.50 H Glucose 117 H Calcium 8.4 L Consult Discharge Plan - Plan Referrals: NONE,PCP [Primary Care Provider] - (1) Hip fracture Qualifiers: Encounter type: initial encounter Fracture type: closed Laterality: left Qualified Code(s): S72.002A - Fracture of unspecified part of neck of left femur, initial encounter for closed fracture (2) Diabetes Qualifiers: Qualified Code(s): E11.9 - Type 2 diabetes mellitus without complications (3) Atrial fibrillation Qualifiers: Qualified Code(s): I48.91 - Unspecified atrial fibrillation (4) CAD (coronary artery disease) Qualifiers: Qualified Code(s): I25.10 - Atherosclerotic heart disease of [place] coronary artery without angina pectoris (6) Chronic kidney disease Qualifiers: Chronic kidney disease stage: stage 3 (moderate) Qualified Code(s): N18.3 - Chronic kidney disease, stage 3 (moderate)
[2019-02-13] MEDS: Metoprolol XL (24 HR) Succ 50 MG TAB.ER.24H PO SCH ×2 (08:51→23:14)
[2019-02-13] MEDS: Ranolazine 500 MG TAB.ER.12H PO SCH ×2 (08:51→23:13)
[2019-02-13] MEDS: Aspirin Enteric Coated 81 MG Tablet PO SCH (08:51)
[2019-02-13] MEDS: Furosemide 40 MG TABLET PO SCH ×2 (08:51→23:13)
--- NOTE | 2019-02-13 11:51 | Orthopedics Progress Note ---
Date of Encounter: 02/13/19 Time of Encounter: 11:50 - Assessment and Plan (1) Hip fracture Current Visit: Yes Status: Acute Qualifiers: Encounter type: initial encounter Fracture type: closed Laterality: left Qualified Code(s): S72.002A - Fracture of unspecified part of neck of left femur, initial encounter for closed fracture Subjective Interval history: Resting comfortably this AM. Vitals reviewed Extremity exam: Dressing clean, dry and intact No erythema or drainage Distally neurovascularly intact to motor/sensory exam No calf pain or tenderness s/p L hip nail Continue current management PO pain and nausea control Up with PT Discharge planning F/u in 2 weeks with Gricelda Vargas PA-C Objective Vital signs: Vital Signs Temp Pulse Resp BP Pulse Ox 02/13/19 07:56 97.9 F 76 16 127/76 95 02/13/19 06:06 98.6 F 73 16 106/53 96 02/13/19 01:06 98.0 F 77 20 103/63 99 02/13/19 00:11 114/65 02/12/19 23:11 100/61 02/12/19 18:47 98.6 F 74 20 94/59 95 02/12/19 15:54 98.0 F 90 18 118/66 Intake and Output 02/12/19 02/13/19 02/13/19 23:59 07:59 15:59 Intake Total 120 / 1940 100 / 340 240 / 340 Output Total 700 / 1550 420 / 420 Balance -580 / 390 -320 / -80 240 / -80 Intake: IV Fluids 100 / 100 Ofirmev 1,000 mg/100 ml 1,000 100 / 100 mg In 100 ml @ 400 mls/hr IVPB ONCE ONE Rx#:[id number] Oral 120 / 720 240 / 240 Output: Urine 700 / 1550 420 / 420 Other: Meal Dinner Breakfast Percent of Meal Consumed 90% 100% # Voids 1 Blood Glucose* 192 106 - Labs CBC & BMP: 02/13/19 05:53 02/13/19 05:53 Labs: Abnormal lab results RBC 3.34 M/mcL (4.19-5.50) L 02/13/19 05:53 Hgb 9.4 g/dL (12.9-16.9) L 02/13/19 05:53 Hct 29.4 % (37.5-50.1) L 02/13/19 05:53 MCH 27.9 pg (28.0-33.3) L 02/12/19 03:01 MCHC 31.2 g/dL (31.6-35.5) L 02/12/19 03:01 RDW 15.2 % (11.5-14.5) H 02/13/19 05:53 Plt Count 128 K/mcL (140-400) L 02/13/19 05:53 MPV 12.6 fL (9.4-12.4) H 02/13/19 05:53 Immature Plt Fraction 11.8 % (1.1-6.1) H 02/13/19 05:53 Sodium 131 mEq/L (136-145) L 02/13/19 05:53 Chloride 95 mEq/L (98-107) L 02/12/19 03:01 BUN 29 mg/dL (8-23) H 02/13/19 05:53 Creatinine 1.50 mg/dL (0.70-1.30) H 02/13/19 05:53 Est GFR ( Amer) 54 (> 60) L 02/13/19 05:53 Est GFR (Non-Af Amer) 44 (> 60) L 02/13/19 05:53 Glucose 117 mg/dL (70-105) H 02/13/19 05:53 POC Glucose 106 mg/dL (70-99) H 02/13/19 07:46 Calculated Osmolality 279 (280-300) L 02/13/19 05:53 Calcium 8.4 mg/dL (8.6-10.3) L 02/13/19 05:53 Consult Discharge Plan - Plan Referrals: NONE,PCP [Primary Care Provider] -
[2019-02-14 04:30] LABS: Hematocrit 32.3 % (37.5-50.1); Hemoglobin 10.1 g/dL (12.9-16.9); Immature Platelets 11.9 % (1.1-6.1); Mean Corpuscular HGB Conc 31.3 g/dL (31.6-35.5); Mean Corpuscular Hemoglobin 27.4 pg (28.0-33.3); Mean Corpuscular Volume 87.8 fL (83.0-100.0); Mean Platelet Volume 12.3 fL (9.4-12.4); Red Blood Count 3.68 M/mcL (4.19-5.50); Red Cell Distribution Width 15.4 % (11.5-14.5); White Blood Count 5.5 K/mcL (4.3-11.1)
[2019-02-14 04:31] LABS: BUN/Creatinine Ratio 21 (6-26); Blood Urea Nitrogen 28 mg/dL (8-23); Calcium 8.4 mg/dL (8.6-10.3); Carbon Dioxide 25 mEq/L (23-29); Chloride 101 mEq/L (98-107); Glucose 134 mg/dL (70-105); Osmolality,Calculated 287 (280-300); Potassium 4.3 mEq/L (3.5-5.1); Sodium 135 mEq/L (136-145); eGFR For African Americans > 60 (> 60); eGFR For Non-African Americans 52 (> 60)
[2019-02-14] MEDS: *HR* Heparin 5,000 UNIT/ML VIAL SQ SCH (05:14)
[2019-02-14] MEDS: Insulin LISPRO 300 UNITS/3 ML VIAL SQ SCH ×2 (08:40→11:53)
[2019-02-14] MEDS: Ranolazine 500 MG TAB.ER.12H PO SCH (08:41)
[2019-02-14] MEDS: Aspirin Enteric Coated 81 MG Tablet PO SCH (08:41)
[2019-02-14] MEDS: Furosemide 40 MG TABLET PO SCH (08:41)
--- NOTE | 2019-02-14 09:13 | Discharge Summary ---
Date of Encounter: 02/14/19 Time of Encounter: 10:00 - Discharge Diagnosis (1) Hip fracture Priority: Primary Status: Acute Assessment and Plan: 83 year old male with pmh of atrial fibrillation, CAD, diabetes, dyslipidemia presenting with complaints of being unable to walk today s/p fall. Patient reports having falling down on wednesday and has been having pain and difficulty ambulating since then. he subsequenty fell agin 2 more times, the most recent being at 3am today. He has been in severe pain and been unable to ambulate since then and that's why he came to the ER. He denies any other acute complaints such as chest pain, nausea or vomiting. In the ER at [facility] he had, a hip xray done showing a left hip fracture and he was transferred here for an orthopedic surgery assessment. He came in with hip fracture s/p fall. He was seen by orthopedic surgery and had a left hip cephalomedullary nail on 02/11. Tolerated procedure well with no acute complications. He is being discharged to rehab. 35 minutes was spent di scharging this patient Qualifiers: Encounter type: initial encounter Fracture type: closed Laterality: left Qualified Code(s): S72.002A - Fracture of unspecified part of neck of left femur, initial encounter for closed fracture (2) Diabetes Priority: Primary Status: Acute Qualifiers: Qualified Code(s): E11.9 - Type 2 diabetes mellitus without complications (3) Atrial fibrillation Priority: Primary Status: Acute Qualifiers: Qualified Code(s): I48.91 - Unspecified atrial fibrillation (4) CAD (coronary artery disease) Priority: Primary Status: Acute Qualifiers: Qualified Code(s): I25.10 - Atherosclerotic heart disease of [place] coronary artery without angina pectoris (5) Dyslipidemia Priority: Primary Status: Acute (6) Chronic kidney disease Priority: Primary Status: Acute Qualifiers: Chronic kidney disease stage: stage 3 (moderate) Qualified Code(s): N18.3 - Chronic kidney disease, stage 3 (moderate) (7) DVT prophylaxis Priority: Primary Status: Acute Hospital course: Mr. Zacarias is a 83 year old male - Time Spent with Patient Total time spent providing and/or coordinating discharge services: - Discharge Medications Prescriptions: New Docusate [Colace] 100 mg PO BID PRN #60 capsule PRN Reason: Constipation Polyethylene Glycol 3350 [MiraLAX] 17 gm PO DAILY PRN #60 powd.pack PRN Reason: Constipation OxyCODONE/APAP 5/325 [Percocet 5/325 MG] 1 each PO Q6HR PRN 5 Days #20 tablet PRN Reason: Pain Continued Glimepiride [Amaryl] 2 mg PO 0800 Clopidogrel [Plavix] 75 mg PO DAILY Furosemide [Lasix] 40 mg PO BID Rosuvastatin [Crestor] 40 mg PO DAILY Ranolazine [Ranexa] 500 mg PO BID Albuterol Sulfate [Proair Hfa] 1 puff IH Q6H PRN PRN Reason: Shortness Of Breath/Wheezing Aspirin [Lo-Dose Aspirin EC] 1 tab PO DAILY Metoprolol Tartrate 50 mg PO BID Home Medications: Albuterol Sulfate [Proair Hfa] 1 puff IH Q6H PRN 02/10/19 [History] Aspirin [Lo-Dose Aspirin EC] 1 tab PO DAILY 02/10/19 [History] Clopidogrel [Plavix] 75 mg PO DAILY 02/10/19 [History] Furosemide [Lasix] 40 mg PO BID 02/10/19 [History] Glimepiride [Amaryl] 2 mg PO 0800 02/10/19 [History] Ranolazine [Ranexa] 500 mg PO BID 02/10/19 [History] Rosuvastatin [Crestor] 40 mg PO DAILY 02/10/19 [History] Metoprolol Tartrate 50 mg PO BID 02/12/19 [History] Docusate [Colace] 100 mg PO BID PRN #60 capsule 02/14/19 [Rx] OxyCODONE/APAP 5/325 [Percocet 5/325 MG] 1 each PO Q6HR PRN 5 Days #20 tablet 02/14/19 [Rx] Polyethylene Glycol 3350 [MiraLAX] 17 gm PO DAILY PRN #60 powd.pack 02/14/19 [Rx] Allergies/Adverse Reactions: Allergy/AdvReac Type Severity Reaction Status Date / Time Iodinated Contrast Media Allergy Severe Rash Verified 02/10/19 16:28 Date of admission: 02/11/19 12:59 Primary care physician: PCP NONE Consults: 02/10/19 16:27 Consult to Orthopedic Surgery [CONS] Routine Consulting Provider: [facility] Reason for Consult: hip fracture Call Completed: Yes 02/11/19 12:33 Consult to Occupational Therapy [CONS] Routine Comment: Evaluate, develop and implement POC Reason for Consult: post hip surgery Does patient have active BEDREST order?: No Is patient medically & hemodynamically stable?: Yes Consult to Orthopedic Navigator [CONS] [CONS] Routine Consult to Physical Therapy [CONS] Routine Comment: Evaluate, develop and implement POC Reason for Consult: post hip surgery Does patient have active BEDREST order?: No Is patient medically & hemodynamically stable?: Yes Consult to Hazmat Truck Driver [CONS] Routine Reason for SW Consult: post -op hip fracture RT Post Op Consult [CONS] Routine - Constitutional Vitals: Temp Pulse Resp BP Pulse Ox 97.9 F 78 18 103/54 98 02/14/19 06:28 02/14/19 06:28 02/14/19 06:28 02/14/19 06:28 02/14/19 06:28 Exam: General appearance: Present: A&O X 3, no acute distress Head exam: Present: normocephalic Respiratory exam: Present: CTAB. Absent: accessory muscle use, rales, rhonchi, wheezes Cardiovascular exam: Present: RRR, +S1, +S2. Absent: diastolic murmur, gallop, rubs, systolic murmur GI/Abdominal exam: Soft, NT, ND, +BS Extremities exam: Left lower extremity dressing in place Neurological exam: Present: alert, oriented X3, no focal deficits. Absent: altered - Patient Status Disposition: Home, Self-Care Condition: Good - Discharge Instructions Follow Up With: NONE,PCP [Primary Care Provider] - Jesus Samayoa DO [Partnered Physician] - 03/07/19 7:30 am
--- NOTE | 2019-02-14 11:30 | Physician Discharge Referral ---
- Diagnosis (1) Hip fracture Priority: Primary Status: Acute (2) Diabetes Priority: Primary Status: Acute (3) Atrial fibrillation Priority: Primary Status: Acute (4) CAD (coronary artery disease) Priority: Primary Status: Acute (5) Dyslipidemia Priority: Primary Status: Acute (6) Chronic kidney disease Priority: Primary Status: Acute (7) DVT prophylaxis Priority: Primary Status: Acute - Transfer Medications Prescriptions: Docusate [Colace] 100 mg PO BID PRN #60 capsule PRN Reason: Constipation Prescription Printed Polyethylene Glycol 3350 [MiraLAX] 17 gm PO DAILY PRN #60 powd.pack PRN Reason: Constipation Prescription Printed OxyCODONE/APAP 5/325 [Percocet 5/325 MG] 1 each PO Q6HR PRN 5 Days #20 tablet PRN Reason: Pain Prescription Printed Home Medications: Albuterol Sulfate [Proair Hfa] 1 puff IH Q6H PRN 02/10/19 [History] Aspirin [Lo-Dose Aspirin EC] 1 tab PO DAILY 02/10/19 [History] Clopidogrel [Plavix] 75 mg PO DAILY 02/10/19 [History] Furosemide [Lasix] 40 mg PO BID 02/10/19 [History] Glimepiride [Amaryl] 2 mg PO 0800 02/10/19 [History] Ranolazine [Ranexa] 500 mg PO BID 02/10/19 [History] Rosuvastatin [Crestor] 40 mg PO DAILY 02/10/19 [History] Metoprolol Tartrate 50 mg PO BID 02/12/19 [History] Docusate [Colace] 100 mg PO BID PRN #60 capsule 02/14/19 [Rx] OxyCODONE/APAP 5/325 [Percocet 5/325 MG] 1 each PO Q6HR PRN 5 Days #20 tablet 02/14/19 [Rx] Polyethylene Glycol 3350 [MiraLAX] 17 gm PO DAILY PRN #60 powd.pack 02/14/19 [Rx] Allergies/Adverse Reactions: Allergy/AdvReac Type Severity Reaction Status Date / Time Iodinated Contrast Media Allergy Severe Rash Verified 02/10/19 16:28 - Respiratory Orders Smoking Cessation: Smoking cessation has been advised. For more information, call the [place] Tobacco Quit Line at 9-328-CWPK-NOW. - Mobility Orders Ambulate - Rehabiliation Orders Rehab Potential: Good CERTIFICATION: I certify that the transfer of the above named patient to an Extended Care Facility is necessary for the continuing treatment of the diagnosis listed. The above information is true and accurate reflection of patient's current condition. Confidential - Redisclosure prohibited without a patient's written consent.
[2019-02-14] MEDS: Metoprolol XL (24 HR) Succ 50 MG TAB.ER.24H PO SCH (11:51)
[2019-02-14 15:48] VITALS: BP 106/69
== END 2019-02-14 17:15 | disposition home or self-care (01) | DRG 482 ==
LOC: 3NENU 15:23 → INTOOBSV 15:23
PROVIDERS: ADMIT Pharmacist; ATTEND Pharmacist